=== PATIENT | male | born 1995 | race Caucasian/White ===

== ENCOUNTER 2020-06-03 12:01 | Emergency (ER) | payer OTHER, SELFPAY ==
[2020-06-03 12:22] VITALS: BP 133/76; PULSE 95; RESP 18; TEMP 37.5; O2SAT 97; BMI 26.6
--- NOTE | 2020-06-03 12:25 | ED_ITS ---
HPI - Alcohol General Chief Complaint: General Medical Stated Complaint: OD?/HYPERTENSION Time Seen by Provider: 06/03/20 12:18 Source: patient and EMS Mode of arrival: EMS History of Present Illness HPI narrative: 24-year-old male with no significant past medical history brought in by ambulance s/p found on front porch unresponsive ?Overdose. Reportedly per EMS heroin was found near patient. Patient only admits to using marijuana. De nies EtOH/SI/HI, trauma/falls, CP/SOB, nausea/vomiting, head trauma Last drink: Just prior to admission Related Data Allergies Allergy/AdvReac Type Severity Reaction Status Date / Time No Known Allergies Allergy Unverified 12/11/19 16:16 [No Known Allergies*] Review of Systems Review of Systems: Constitutional: No Fever, No Chills Eyes: No Eye Pain Cardiovascular: No Chest Pain, No SOB, No Palpitations Respiratory: No Cough, No Dyspnea Gastrointestinal: No Nausea, No Vomiting, No Abdominal pain Musculoskeletal: No joint pain, No Joint Swelling Skin: No Skin Lesions, No rash Neuro: No Weakness, No Headache Psych: No Anxiety/Panic, No Depression, No SI/HI Yes all other systems are reviewed and are negative Neurologic: Denies Abnormal speech present [facility] Past Medical History Attestation statement: The following information was validated with the patient. Medical History (Updated 06/03/20 @ 13:59 by OSEAS Mercado) No significant past medical history Social History Social History Alcohol intake: current Smoking Status: Current every day smoker Smoked in Last 30 Days: Yes Substance Use Type: Marijuana and Prescription Drugs Advance Directives: No Advance Directives Information Provided: No Physical Exam Vital Signs: Vital Signs: Last Vital Signs Temp 98.2 F 06/03/20 13:11 Pulse 87 06/03/20 13:31 Resp 16 06/03/20 13:31 BP 117/76 06/03/20 13:31 Pulse Ox 98 06/03/20 13:31 Body Mass Index 26.6 Const: Other: Appears under the influence General: cooperative, healthy appearing, alert and awake Limitations: no limitations HENMT: Head: Yes normal to inspection and Yes atraumatic Ears: hearing grossly normal bilaterally General nose exam: Normal external nose present Face and sinus: Yes normal facial exam Eyes: General: appearance normal, both eyes and all related structures Pupils: Equal, round and reactive pupils present EOM: EOMs intact bilaterally Neck: Neck: Yes normal visual inspection and Yes no meningeal signs Resp: Effort & Inspection: normal respiratory effort Cardio: Rate: regular rate GI: Inspection: Yes normal to inspection Palpation (GI): Soft to palpation, nontender, no guarding and not rigid Skin: Rashes: no rashes Wounds: no wounds Neuro: General: tone normal, moves all extremities and no meningeal signs Cranial nerves: Yes Equal, round and reactive pupils present Speech: No Abnormal speech present Gait exam (Neuro): Normal gait present Extrem: General: Yes normal to inspection Course Reevaluation(s) Reevaluation #1: Patient is awake and alert, ambulating around the ED with steady gait, used the bathroom, tolerated p.o. Has family at bedside who will be staying with patient all day, and giving him safe ride home. Plan to DC Time: 13:59 MDM - Alcohol MDM Narrative Medical decision making narrative: 24-year-old male with no significant past medical history brought in by ambulance s/p found on his front porch unresponsive ?Overdose. On exam VSS, NAD, appears under the influence, awake, alert, atraumatic, NAD, nontoxic appearing. No medications given by EMS. Will observe and reassess. If patient remains awake/alert plan for discharge Discharge Plan Discharge Clinical Impression: Overdose Qualifiers: Encounter type: initial encounter Injury intent: accidental or unintentional Qualified Code(s): T50.901A - Poisoning by unspecified drugs, medicaments and biological substances, accidental (unintentional), initial encounter Patient Disposition: Home, Self-Care Instructions: Polysubstance Abuse (ED) Additional Instructions: Do not take drugs or drink alcohol it can kill you Follow-up with your doctor If you have thoughts of hurting herself or hurting others return to the ED Referrals: Physician,None [Primary Care Provider] - 2 days
--- NOTE | 2020-06-03 12:28 | PC.NURSE ---
Security at bedside. Pt patted down. No paraphernalia found on pt.
--- NOTE | 2020-06-03 12:55 | PC.NURSE ---
Pt requested and given snack and gingerale, tolerating po well.
[2020-06-03 13:11] VITALS: BP 122/71; PULSE 84; RESP 16; TEMP 36.8; O2SAT 96
[2020-06-03 13:12] VITALS: PULSE 78; RESP 14; O2SAT 95
--- NOTE | 2020-06-03 13:20 | PC.NURSE ---
Pt nodding off during assessments. Provider made aware. Vital signs and respirations within normal limits and documented. Skin color within normal limits for pt. Pt arousable to verbal stimuli.
[2020-06-03 13:31] VITALS: BP 117/76; PULSE 87; RESP 16; O2SAT 98
--- NOTE | 2020-06-03 13:56 | PC.NURSE ---
Pt up and walking around ED. Asking about discharge, provider aware, awaiting d/c paperwork.
[2020-06-03 14:10] LABS: Amphetamine Screen Urine Not Detected (Not Detect); Barbiturates, Urine Not Detected (Not Detect); Benzodiazepines Screen Urine Not Detected (Not Detect); Cannabinoid Screen Urine POSITIVE (Not Detect); Cocaine Screen Urine Not Detected (Not Detect); Opiate Screen Urine POSITIVE (Not Detect); Phencyclidine Screen Urine Not Detected (Not Detect)
== END 2020-06-03 14:03 | disposition home or self-care (01) ==
PROVIDERS: Physician Assistant; Emergency Provider Emergency Medicine Emergency Medical Services
DX: T40.1X1A Poisoning by heroin, accidental (unintentional), initial encounter (principal); R40.4 Transient alteration of awareness; Y92.038 Other place in apartment as the place of occurrence of the external cause; F12.10 Cannabis abuse, uncomplicated; F11.10 Opioid abuse, uncomplicated
CPT/HCPCS: 80307; 99284

== ENCOUNTER 2021-04-05 12:30 | Outpatient (REF) | payer OTHER, SELFPAY ==
[2021-04-05 15:13] LABS: Binax Internal Control QC Valid; Binax Now Covid-19 Ag Negative (Negative)
== END 2021-04-05 12:31 | disposition home or self-care (01) ==
LOC: HO.LAB 12:30
PROVIDERS: Visit Provider Internal Medicine
DX: Z20.822 Contact with and (suspected) exposure to COVID-19 (principal)
CPT/HCPCS: C9803

== ENCOUNTER → 2021-05-05 09:11 | Outpatient (BNVA) | payer OTHER, SELFPAY | PROVIDERS: Visit Provider Nurse Practitioner Psychiatric/Mental Health | DX: Z51.81 Encounter for therapeutic drug level monitoring (principal); F11.20 Opioid dependence, uncomplicated; F14.20 Cocaine dependence, uncomplicated | CPT/HCPCS: 99202 ==

== ENCOUNTER → 2022-06-05 12:55 | Outpatient (BNVA) | payer OTHER, SELFPAY | PROVIDERS: Visit Provider Nurse Practitioner Psychiatric/Mental Health | DX: F11.20 Opioid dependence, uncomplicated (principal); F14.20 Cocaine dependence, uncomplicated | CPT/HCPCS: 99212 ==

== ENCOUNTER → 2022-06-20 15:56 | Outpatient (BNVA) | payer OTHER, SELFPAY | PROVIDERS: PCP Physician Assistant | DX: Z51.81 Encounter for therapeutic drug level monitoring (principal); F11.20 Opioid dependence, uncomplicated | CPT/HCPCS: 80305 ==

== ENCOUNTER 2022-06-27 16:21 | Outpatient (REF) | payer OTHER, SELFPAY | END 2022-06-27 16:22 | disposition home or self-care (01) | LOC: HO.LAB 16:21 | PROVIDERS: PCP Physician Assistant; Visit Provider Nurse Practitioner Psychiatric/Mental Health | DX: F11.20 Opioid dependence, uncomplicated (principal); Z51.81 Encounter for therapeutic drug level monitoring; Z79.899 Other long term (current) drug therapy | CPT/HCPCS: 99212 ==

== ENCOUNTER 2022-06-30 18:06 | Emergency (ER) | payer OTHER, SELFPAY ==
[2022-06-30 18:12] VITALS: BP 120/77; BP 140/78; PULSE 110; PULSE 121; RESP 20; TEMP 36.7; O2SAT 95; O2SAT 97; BMI 27.8
--- NOTE | 2022-06-30 18:16 | ED_ITS ---
HPI - Overdose General Chief Complaint: Overdose Stated Complaint: heroin overdose Time Seen by Provider: 06/30/22 18:12 Source: patient and EMS Mode of arrival: EMS Limitations: no limitations History of Present Illness HPI Narrative: Patient comes to the emergency room via EMS after an accidental overdose. Patient states that he usually does not use heroin, this time he used cocaine and heroin. Patient states it was an unintentional overdose, denies homicidal or suicidal ideation. According to EMS, patient was given intranasal Narcan and ventilated, patient response. Related Data Previous Rx's Medication Instructions Recorded hydroxyzine HCl 25 mg tablet 25 mg PO TID PRN anxiety #14 tabs 05/05/21 naloxone 4 mg/actuation nasal 4 mg intranasal Q2M PRN opioid 05/05/21 spray (Narcan) overdose #2 ea buprenorphine 8 mg-naloxone 2 mg 1 film sublingual BID #15 ea 06/27/22 sublingual film Allergies Allergy/AdvReac Type Severity Reaction Status Date / Time No Known Allergies Allergy Verified 06/20/22 16:02 [No Known Allergies*] Review of Systems Review of Systems: Constitutional : No Weight loss, No Fever, No Chills, No Night Sweats, No Fatigue, No Malaise ENT/Mouth : No Hearing loss, No Ear Pain, No Nasal Congestion, No Sinus Pain, No Hoarseness, No sore throat, No Rhinorrhea, No Swallowing Difficulty Eyes: No Eye Pain, No Swelling, No Redness, No Foreign Body, No Discharge, No Vision Changes Cardiovascular : No Chest Pain, No SOB, No Dyspnea on Exertion, No Orthopnea, No Edema, No Palpitations Respiratory : No Cough, No Sputum, No Wheezing, No Smoke Exposure, No Dyspnea Gastrointestinal : No Nausea, No Vomiting, No Diarrhea, No Constipation, No abdominal Pain, No Hematochezia, No Melena Genitourinary : no irregular bleeding, No Dysuria, No Urinary Frequency, No Hematuria, No Urinary Incontinence, No Urgency, No Flank Pain, No Urinary Flow Changes, No Hesitancy Musculoskeletal : No joint pain, No Myalgias, No Joint Swelling Skin : No Skin Lesions, No rash Neuro : No Weakness, No Numbness, No Paresthesias, No Loss of Consciousness, No Dizziness, No Headache Psych : Denies anxiety or depression, admits to drug abuse, refuses detox Heme/Lymph: No Bruising, No Bleeding,No Lymphadenopathy Endocrine : No Polyuria, No Polydipsia, No Temperature Intolerance [facility] Past Medical History Medical History (Updated 06/30/22 @ 18:20 by Payal Weathers MD) Cocaine use disorder, moderate, dependence Opioid use disorder, severe, dependence Social History Social History Alcohol intake: current Substance Use Type: Marijuana and Prescription Drugs Advance Directives: No Advance Directives Information Provided: No Physical Exam Vital Signs: Vital Signs: Last Vital Signs Temp 98.0 F 06/30/22 18:12 Pulse 121 H 06/30/22 18:12 Resp 20 06/30/22 18:12 BP 120/77 06/30/22 18:12 Pulse Ox 95 06/30/22 18:12 O2 Del Method Room Air 06/30/22 18:12 BMI result Body Mass Index 27.8 Const: Other: Appearance: Alert. Oriented X3. No acute distress. Eyes: Pupils equal, round and reactive to light. ENT: Pharynx normal. Neck: Normal inspection. Neck supple. No lymph nodes noted. No crepitus CVS: Normal heart rate and rhythm. Pulses normal. Normal S1 and S2 Respiratory: No respiratory distress. Breath sounds normal. No Wheezing. No rales Abdomen: Soft and nontender. No rigidity. No distention. Skin: Skin warm and dry. Normal skin color. Normal skin turgor. Extremities: No lower extremity edema. No Lacerations. No Rash Neuro: Oriented X 3. No motor deficit. No sensory deficit. Moving all extremities. No slurred speech. CN 2 through 12 grossly intact Psych: calm, cooperative, normal affect Medical Decision Making Medical Decision Making MDM Narrative: -patient a bit anxious, tachycardic, patient refusing care. Patient states that it was accidental. -patient was given 1 dose of intranasal Narcan with good response. Patient is willing to stay for observation for couple of hours. -on arrival patient is alert and oriented x4, no acute distress, oxygen saturation 95% on room air. -patient will be provided with home Narcan. -patient declined to be seen by the care team for SUDE eval -physician observe agents status at 18:20 -19:10 patient requesting to be discharged, patient has remained alert, oriented x4, oxygen saturation above 95%, ambulatory, denies SI or HI Differential Diagnosis Differential Diagnoses: The differential diagnosis associated with the presentation includes Discharge Plan Discharge Clinical Impression: Drug overdose Patient Disposition: Home, Self-Care Additional Instructions: Please follow-up with your primary care physician tomorrow. If you have any worsening or new symptoms, please return to the emergency room or call 911 Prescriptions: No Action hydroxyzine HCl 25 mg tablet 25 mg PO TID PRN (Reason: anxiety) Qty: 14 0RF naloxone [Narcan] 4 mg/actuation spray,non-aerosol 4 mg intranasal Q2M PRN (Reason: opioid overdose) Qty: 2 0RF Rx Instructions: spray 1 dose into ONE nostril; alternate nostrils w each dose until help arrives buprenorphine-naloxone 8-2 mg film 1 film sublingual BID Qty: 15 0RF
[2022-06-30] MEDS: Naloxone HCl Nasal TAKE HOME 4 MG SPRAY NOSTRILALT (19:17)
== END 2022-06-30 19:25 | disposition home or self-care (01) ==
PROVIDERS: Emergency Provider Emergency Medicine
DX: T40.1X1A Poisoning by heroin, accidental (unintentional), initial encounter (principal); Y92.9 Unspecified place or not applicable; Z79.899 Other long term (current) drug therapy
CPT/HCPCS: 99282; 99283

== ENCOUNTER 2022-07-05 19:53 | Emergency (ER) | payer OTHER, SELFPAY ==
[2022-07-05 20:20] VITALS: BP 107/62; PULSE 89; RESP 18; TEMP 36; O2SAT 95; BMI 27.8
--- NOTE | 2022-07-05 20:20 | ED_ITS ---
HPI - Headache General Chief Complaint: Headache <Morena Urias NP - Last Filed: 07/05/22 20:44> Stated Complaint: headache vomiting <Morena Urias NP - Last Filed: 07/05/22 20:44> Time Seen by Provider: 07/05/22 21:52 <Morena Urias NP - Last Filed: 07/05/22 20:44> Source: patient <Cyrus Urban MD - Last Filed: 07/05/22 23:34> Mode of arrival: ambulatory <Cyrus Urban MD - Last Filed: 07/05/22 23:34> Limitations: no limitations <Cyrus Urban MD - Last Filed: 07/05/22 23:34> History of Present Illness HPI Narrative: Patient with history of migraine headaches been having headaches similar to that in the past since the morning. Pain is throbbing pain retro bulbar area with photosensitivity and nausea vomiting no recent trauma no fever or chills <Cyrus Urban MD - Last Filed: 07/05/22 23:34> Related Data Home Medications: Previous Rx's Medication Instructions Recorded hydroxyzine HCl 25 mg tablet 25 mg PO TID PRN anxiety #14 tabs 05/05/21 naloxone 4 mg/actuation nasal 4 mg intranasal Q2M PRN opioid 05/05/21 spray (Narcan) overdose #2 ea buprenorphine 8 mg-naloxone 2 mg 1 film sublingual BID #15 ea 06/27/22 sublingual film [id number] 1 cap PO Q6H PRN headache #20 caps 07/05/22 50 mg-300 mg-40 mg capsule (Fioricet) ondansetron 4 mg disintegrating 4 mg PO Q6-8H PRN nausea and 07/05/22 tablet vomiting #10 tabs sumatriptan succinate 50 mg tablet 50 mg PO Q2H PRN migraine headache 07/05/22 (Imitrex) #10 tabs <Morena Urias NP - Last Filed: 07/05/22 20:44> Allergies/Adverse Reactions: Allergies Allergy/AdvReac Type Severity Reaction Status Date / Time No Known Allergies Allergy Verified 07/05/22 20:20 [No Known Allergies*] <Morena Urias NP - Last Filed: 07/05/22 20:44> Review of Systems Review of Systems: Yes all other systems are reviewed and are negative <Cyrus Urban MD - Last Filed: 07/05/22 23:34> [facility] Past Medical History Medical History: Medical History Cocaine use disorder, moderate, dependence Opioid use disorder, severe, dependence <Morena Urias NP - Last Filed: 07/05/22 20:44> Social History Social History: Social History Alcohol intake: current Substance Use Type: Marijuana and Prescription Drugs Advance Directives: No Advance Directives Information Provided: No <Morena Urias NP - Last Filed: 07/05/22 20:44> Physical Exam Vital Signs: Vital Signs: Last Vital Signs Temp 96.8 F 07/05/22 20:20 Pulse 89 07/05/22 20:20 Resp 18 07/05/22 20:20 BP 107/62 07/05/22 20:20 Pulse Ox 95 07/05/22 20:20 O2 Del Method Room Air 07/05/22 20:20 BMI result Body Mass Index 27.8 <Morena Urias NP - Last Filed: 07/05/22 20:44> Vital Signs: Last Vital Signs Temp 96.8 F 07/05/22 20:20 Pulse 89 07/05/22 20:20 Resp 18 07/05/22 20:20 BP 107/62 07/05/22 20:20 Pulse Ox 95 07/05/22 20:20 O2 Del Method Room Air 07/05/22 20:20 BMI result Body Mass Index 27.8 <Cyrus Urban MD - Last Filed: 07/05/22 23:34> Appearance: Alert. Oriented X3. No acute distress. Eyes: PERRLA, No Nystagmus ENT: Pharynx normal. Oral Mucosa moist no temporal artery tenderness Neck: Normal inspection. Neck supple. CVS: Normal heart rate and rhythm. Pulses normal. Respiratory: No respiratory distress. Equal air entry bilateral, Abdomen: Soft and nontender. Bowel sounds are present, Skin: Skin warm and dry. Normal skin color. Normal skin turgor. Extremities: No lower extremity edema. No calf tenderness Neuro: Oriented X 3. No motor deficit. No sensory deficit.No cerebellar signs , cranial nerves II-XII intact <Cyrus Urban MD - Last Filed: 07/05/22 23:34> Course Course Course Narrative: This is a rapid medical exam. Deferred additional HPI, ROS, PE to primary provider. 26 yo male with history of anxiety, OUD in suboxone here with headache, nausea/vomiting, dizziness which began today while working. No fever, cough or cold symptoms. H/o migraines and feels similar. Normally takes excedrin but did not take any today. Will send viral testing. VSS <Morena Urias NP - Last Filed: 07/05/22 20:44> Medications Administered Discontinued Medications Generic Name Dose Route Start Last Admin Trade Name Freq PRN Reason Stop Dose Admin Acetaminophen/Butalbital/Caffeine 1 tab 07/05/22 21:53 07/05/22 22:02 Butalb/Acetamin/Caff 50/325/40 Tablet PO 07/05/22 21:54 1 tab ONCE ONE Administration Ondansetron HCl 4 mg 07/05/22 21:53 07/05/22 22:03 Ondansetron Odt 4 Mg Tab.Rolando LEGERINGU 07/05/22 21:54 4 mg ONCE ONE Administration Sumatriptan Succinate 6 mg 07/05/22 21:53 07/05/22 22:02 Sumatriptan Succinate 6 Mg/0.5 Ml Vial SUBCUT 07/05/22 21:54 6 mg ONCE ONE Administration <Morena Urias NP - Last Filed: 07/05/22 20:44> Medications Administered Discontinued Medications Generic Name Dose Route Start Last Admin Trade Name Freq PRN Reason Stop Dose Admin Acetaminophen/Butalbital/Caffeine 1 tab 07/05/22 21:53 07/05/22 22:02 Butalb/Acetamin/Caff 50/325/40 Tablet PO 07/05/22 21:54 1 tab ONCE ONE Administration Ondansetron HCl 4 mg 07/05/22 21:53 07/05/22 22:03 Ondansetron Odt 4 Mg Tab.Rapdis TRANSLINGU 07/05/22 21:54 4 mg ONCE ONE Administration Sumatriptan Succinate 6 mg 07/05/22 21:53 07/05/22 22:02 Sumatriptan Succinate 6 Mg/0.5 Ml Vial SUBCUT 07/05/22 21:54 6 mg ONCE ONE Administration <Cyrus Urban MD - Last Filed: 07/05/22 23:34> Medical Decision Making Medical Decision Making MDM Narrative: Patient with migraine headache responded to Imitrex will discharge patient home on Imitrex Fioricet is of <Cyrus Urban MD - Last Filed: 07/05/22 23:34> Lab Data Labs: Lab Results 07/05/22 Range/Units 21:05 Influenza Type A (PCR) NEGATIVE (Negative) Influenza Type B (PCR) NEGATIVE (Negative) RSV RNA Qual (PCR) NEGATIVE (Negative) SARS-CoV-2 RNA (RT-PCR) NEGATIVE (Negative) <Morena Urias NP - Last Filed: 07/05/22 20:44> Lab Results 07/05/22 Range/Units 21:05 Influenza Type A (PCR) NEGATIVE (Negative) Influenza Type B (PCR) NEGATIVE (Negative) RSV RNA Qual (PCR) NEGATIVE (Negative) SARS-CoV-2 RNA (RT-PCR) NEGATIVE (Negative) <Cyrus Urban MD - Last Filed: 07/05/22 23:34> Discharge Plan Discharge Clinical Impression: Migraine <Morena Urias NP - Last Filed: 07/05/22 20:44> Patient Disposition: Home, Self-Care <Morena Urias NP - Last Filed: 07/05/22 20:44> Instructions: Migraine Headache (ED) <Morena Urias NP - Last Filed: 07/05/22 20:44> Additional Instructions: Rest at home Imitrex 1 tablet at onset of headache may repeat another tablet in 2 hours maximum 2 tablets In 24 hours Fioricet 1 tablet every 6 hours as needed Follow with PCP as needed <Morena Urias NP - Last Filed: 07/05/22 20:44> Prescriptions: New sumatriptan succinate [Imitrex] 50 mg tablet 50 mg PO Q2H PRN (Reason: migraine headache) Qty: 10 0RF Rx Instructions: do not exceed 2 doses per 24 hrs ondansetron 4 mg tablet,disintegrating 4 mg PO Q6-8H PRN (Reason: nausea and vomiting) Qty: 10 0RF [id number]-[id number] [Fioricet] 50-300-40 mg capsule 1 cap PO Q6H PRN (Reason: headache) Qty: 20 0RF No Action hydroxyzine HCl 25 mg tablet 25 mg PO TID PRN (Reason: anxiety) Qty: 14 0RF naloxone [Narcan] 4 mg/actuation spray,non-aerosol 4 mg intranasal Q2M PRN (Reason: opioid overdose) Qty: 2 0RF Rx Instructions: spray 1 dose into ONE nostril; alternate nostrils w each dose until help arrives buprenorphine-naloxone 8-2 mg film 1 film sublingual BID Qty: 15 0RF <Morena Urias SALES OFFICE MANAGER - Last Filed: 07/05/22 20:44>
[2022-07-05 21:49] LABS: Influenza A PCR NEGATIVE (Negative); Influenza B PCR NEGATIVE (Negative); Resp Syncy Virus RNA Qual PCR NEGATIVE (Negative); SARS COV2 PCR INHOUSE NEGATIVE (Negative)
[2022-07-05] MEDS: SUMAtriptan succinate 6 MG/0.5 ML VIAL SUBCUT (22:02)
[2022-07-05] MEDS: Butalb/Acetamin/Caff 50/325/40 TABLET 1 TAB PO (22:02)
[2022-07-05] MEDS: Ondansetron ODT 4 MG TAB.RAPDIS TRANSLINGU (22:03)
== END 2022-07-05 23:39 | disposition home or self-care (01) ==
PROVIDERS: Nurse Practitioner Family; Emergency Provider Internal Medicine
DX: G43.909 Migraine, unspecified, not intractable, without status migrainosus (principal); R11.2 Nausea with vomiting, unspecified; R42 Dizziness and giddiness; F11.11 Opioid abuse, in remission; Z20.822 Contact with and (suspected) exposure to COVID-19
CPT/HCPCS: 0241U; 96372; 99283; 99284; J3030

== ENCOUNTER 2022-07-06 21:50 | Emergency (ER) | payer OTHER, SELFPAY ==
--- NOTE | ~2022-07-06 | XR_ITS ---
EXAMINATION: XR CHEST CLINICAL INFORMATION: Unresponsive, aspiration or trauma. COMPARISON: None available. TECHNIQUE: Frontal view of the chest was obtained. FINDINGS: No significant cardiomediastinal contour abnormality. No focal airspace opacity, pleural effusion or pneumothorax. No displaced rib fractures. XR/XR chest 1V IMPRESSION: No acute cardiopulmonary findings. No displaced rib fractures.
[2022-07-06 21:55] VITALS: BP 126/66; PULSE 100; RESP 20; TEMP 36.9; O2SAT 96; BMI 31.8
[2022-07-06 22:00] VITALS: BP 126/66; PULSE 100; RESP 22; TEMP 36.9; O2SAT 96
[2022-07-06 22:18] LABS: MANUAL DIFF FLAG NO
[2022-07-06 22:20] LABS: Basophils Absolute Auto 0.1 X10*3/uL (0.0-0.2); Basophils Percent Auto 0.6 % (0-2); Eosinophils Absolute Auto 0.1 X10*3/uL (0.0-0.4); Eosinophils Percent Auto 1.5 % (0-4); Hematocrit 40.2 % (42.0-52.0); Hemoglobin 13.7 g/dl (14.0-18.0); Imm Gran Abs Auto 0.03 X10*3/uL (0.00-0.03); Imm Gran Pct Auto 0.4 % (0.0-0.4); Lymphocytes Absolute Auto 2.5 X10*3/uL (1.2-4.9); Lymphocytes Percent Auto 30.6 % (20-40); Mean Corpuscular HGB Conc 34.1 g/dl (31.0-36.0); Mean Corpuscular Hemoglobin 28.6 pg (27.0-33.0); Mean Corpuscular Volume 83.9 fL (80.0-98.0); Mean Platelet Volume 9.8 fL (9.4-12.4); Monocytes Absolute Auto 0.5 X10*3/uL (0.1-1.2); Monocytes Percent Auto 6.6 % (2-11); Neutrophils Absolute Auto 4.9 x10*3/uL (2.0-8.3); Neutrophils Percent Auto 60.3 % (45-73); Platelet Count 287 X10*3/uL (160-400); Red Blood Count 4.79 X10*6/uL (4.60-5.80); Red Cell Distribution Width 13.1 % (11.0-16.0); White Blood Count 8.1 X10*3/uL (4.8-10.8)
--- NOTE | 2022-07-06 22:21 | ED_ITS ---
HPI - General Adult General Chief complaint: ETOH/Substance Use Stated complaint: OVERDOSE Time Seen by Provider: 07/06/22 21:58 Source: patient and EMS Mode of arrival: EMS Limitations: no limitations History of Present Illness HPI narrative: This is a 26-year-old male history of opiate use disorder, cocaine use disorder presenting with an accidental overdose, patient presented by ambulance status post receiving 8 mg of intranasal Narcan. Patient reports nausea and body aches after Narcan was administered. Patient tells me he took 1 or 2 Percocets and he says I overdosed on accident . Denies suicidal homicidal ideation. Not seeking detox at this time. No other medical complaints at this time. Denies headache, vision changes, dizziness, weakness, nausea, vomiting, chest pain, shortness of breath. Related Data Previous Rx's Medication Instructions Recorded hydroxyzine HCl 25 mg tablet 25 mg PO TID PRN anxiety #14 tabs 05/05/21 naloxone 4 mg/actuation nasal 4 mg intranasal Q2M PRN opioid 05/05/21 spray (Narcan) overdose #2 ea buprenorphine 8 mg-naloxone 2 mg 1 film sublingual BID #15 ea 06/27/22 sublingual film sswxrntjma-mwlkcwecpqhcw-bxzfrzhi 1 cap PO Q6H PRN headache #20 caps 07/05/22 50 mg-300 mg-40 mg capsule (Fioricet) ondansetron 4 mg disintegrating 4 mg PO Q6-8H PRN nausea and 07/05/22 tablet vomiting #10 tabs sumatriptan succinate 50 mg tablet 50 mg PO Q2H PRN migraine headache 07/05/22 (Imitrex) #10 tabs naloxone 4 mg/actuation nasal 4 mg intranasal Q2M PRN opioid 07/07/22 spray (Narcan) overdose #2 ea Allergies Allergy/AdvReac Type Severity Reaction Status Date / Time No Known Allergies Allergy Verified 07/05/22 20:20 [No Known Allergies*] Review of Systems Review of Systems: Constitutional : No Weight loss, No Fever, No Chills, No Fatigue, No Malaise ENT/Mouth : No sore throat, No Rhinorrhea Eyes: No Eye Pain, No Swelling, No Redness Cardiovascular : No Chest Pain, No SOB, No Dyspnea on Exertion, No Orthopnea, No Edema, No Palpitations Respiratory : No Cough, No Sputum, No Wheezing Gastrointestinal : + Nausea, No Vomiting, No Diarrhea, No Constipation, No abdominal Pain, No Hematochezia, No Melena Genitourinary : No Dysuria, No Urinary Frequency, No Hematuria, Musculoskeletal : No joint pain, + Myalgias, No Joint Swelling Skin : No Skin Lesions, No rash Neuro : No Weakness, No Numbness, No Dizziness, No Headache Psych : No Anxiety/Panic, No Depression All other systems reviewed and are negative Yes all other systems are reviewed and are negative [facility] Past Medical History Attestation statement: The following information was validated with the patient. Source: old records reviewed and nursing notes reviewed Medical History Cocaine use disorder, moderate, dependence Opioid use disorder, severe, dependence Social History Social History Alcohol intake: current Alcohol intake frequency: a few times a week Alcohol type: hard liquor Smoked in Last 30 Days: Yes Use of substances other than those prescribed or required for medical reasons: Yes Substance Use Type: Marijuana Substance Use Frequency: Daily Last Used Substance: Hours (ago) Any prior treatment program specific to substance use: No Advance Directives: No Advance Directives Information Provided: No Physical Exam ED Vital Signs: Vital Signs - 24 hr 07/06/22 21:55 07/06/22 22:00 07/06/22 23:53 Temperature 98.4 F 98.4 F 98.6 F Pulse Rate 100 100 86 Respiratory Rate 20 22 H 17 Blood Pressure 126/66 126/66 124/77 Pulse Oximetry 96 96 95 Oxygen Delivery Method Room Air Room Air Room Air BMI result Body Mass Index 31.8 vss Appearance: Alert.? Oriented X3.? No acute distress.? Head: Normocephalic, atraumatic, no step-offs or deformities Eyes: Pupils equal, round and reactive to light.? Neck: Normal inspection.? Neck supple.? CVS: Normal heart rate and rhythm.? Pulses normal.? Respiratory: No respiratory distress.? Breath sounds normal.? Abdomen: Soft and nontender.? Skin: Skin warm and dry.? Normal skin color.? Normal skin turgor.? Extremities: No lower extremity edema.? No calf ttp. 5/5 strength to bilateral upper and lower extremities Back: No midline tenderness, no C-spine tenderness, full range of motion, no CVA tenderness bilaterally Neuro: Oriented X 3.? No motor deficit.? No sensory deficit. CN 2-12 intact . Normal zqrqpv-aq-deuv, xtiq-ka-gtyq steady tandem gait. Negative Romberg and pronator drift. NIH stroke scale 0. GCS of 15. Course Reevaluation(s) Reevaluation #1: CBC with slight normocytic anemia, no evidence of bleeding, no reports of bleeding. Chemistries with no acute findings requiring intervention. Troponin negative, EKG nonischemic. Ethanol negative. Time: 23:45 Reevaluation #2: Total CPK 306, not meeting criteria for rhabdo, patient tolerating p.o. fluids. Will educate on proper hydration. Patient feeling well, 97% on room air. At this time patient will be discharged with home Narcan. Refusing detox services and SUDE, no si or hi. . Educated patient on diagnosis and treatment plan, a nswered all question, patient verbalizes understanding. At this time patient will be discharged home, advised to return with new or worsening symptoms. Educated on worrisome signs and symptoms and when to return. At this time I feel comfortable discharge home. Time: 23:46 Medical Decision Making Medical Decision Making MDM Narrative: 26-year-old male presents status post accidental overdose on opiates was given 8 mg of intranasal Narcan by EMS. Denies suicidal and homicidal ideation. Now complaining of nausea and body aches after Narcan. Physical exam. GCS 15. NIH stroke scale 0. Neurological exam nonfocal, cerebellar intact. Regular rate and rhythm. Lungs clear. Abdomen soft nontender nondistended. No evidence of trauma. Likely accidental overdose, Percocet may have been laced with fentanyl. Suspected polysubstance abuse. Unlikely metabolic derangements. I do not suspect rhabdo or ACS. No evidence of trauma head, cervical spine, chest, abdomen or pelvis, patient not complaining of any pain. No need for imaging. Plan at this time observation, basic labs were ordered by nursing. Differential Diagnosis Differential Diagnoses: The differential diagnosis associated with the presen tation includes Likely accidental overdose, Percocet may have been laced with fentanyl. Suspected polysubstance abuse. Unlikely metabolic derangements. I do not suspect rhabdo or ACS. No evidence of trauma head, cervical spine, chest, abdomen or pelvis, patient not complaining of any pain. No need for imaging. Admission/Observation Consideration of admission/observation: Escalation of care including admission/observation considered Lab Data MDM Lab Attestation statement: I reviewed the patient's lab results. 07/06/22 22:14 07/06/22 22:14 Labs: Lab Results 07/06/22 07/06/22 07/06/22 Range/Units 22:14 22:14 22:14 WBC 8.1 (4.8-10.8) X10*3/uL RBC 4.79 (4.60-5.80) X10*6/uL Hgb 13.7 L (14.0-18.0) g/dl Hct 40.2 L (42.0-52.0) % MCV 83.9 (80.0-98.0) fL MCH 28.6 (27.0-33.0) pg MCHC 34.1 (31.0-36.0) g/dl RDW 13.1 (11.0-16.0) % Plt Count 287 (160-400) X10*3/uL MPV 9.8 (9.4-12.4) fL Immature Gran % (Auto) 0.4 (0.0-0.4) % Neut % (Auto) 60.3 (45-73) % Lymph % (Auto) 30.6 (20-40) % Stokes % (Auto) 6.6 (2-11) % Eos % (Auto) 1.5 (0-4) % Baso % (Auto) 0.6 (0-2) % Lymph # (Auto) 2.5 (1.2-4.9) X10*3/uL Stokes # (Auto) 0.5 (0.1-1.2) X10*3/uL Eos # (Auto) 0.1 (0.0-0.4) X10*3/uL Baso # (Auto) 0.1 (0.0-0.2) X10*3/uL Abs Immat Gran (auto) 0.03 (0.00-0.03) X10*3/uL Absolute Neuts (auto) 4.9 (2.0-8.3) x10*3/uL Absolute Nucleated RBC 0.000 (0.0-0.012) X10*3/uL Nucleated RBC % (auto) 0.0 (0.0-0.2) /100WBC Sodium 141 (135-145) mmol/L Potassium 3.4 (3.3-5.1) mmol/L Chloride 105 (96-108) mmol/L Carbon Dioxide 27 (22-29) mmol/L Anion Gap 12 (12-20) BUN 8 L (9-16) mg/dL Creatinine 1.00 (0.5-1.4) mg/dL Estim Creat Clear Calc 134.6 Estimated GFR > 60 Random Glucose 94 (60-115) mg/dL Calcium 9.0 (8.4-10.2) mg/dL Total Bilirubin 0.3 (0.0-1.0) mg/dL AST 25 (5-37) U/L ALT 27 (0-40) U/L Alkaline Phosphatase 107 (39-117) U/L Total Creatine Kinase 306 H (38-174) U/L Troponin I High Sens < 2.7 (<3.5-35.0) ng/L Total Protein 7.0 (6.5-8.0) g/dL Albumin 4.2 (3.5-5.0) g/dL Ethyl Alcohol < 10 mg/dL Independent Interpretation I performed an independent interpretation of an: EKG (Ventricular rate of 91, SC normal, QRS normal, QT/QTC normal. No ST elevations or inversions concerning for ischemia.) and Plain X-Ray (XR/XR chest 1V IMPRESSION: No acute cardiopulmonary findings. No displaced rib fractures.) Radiology Impression Discussion of test interpretation with radiology: I have reviewed the radiologist's reading. Core Measures AMI core measures followed: Yes Measure exclusions: not indicated Critical Care Time Critical Care Time Critical Care Time: No Discharge Plan Discharge Clinical Impression: Opiate overdose Patient Disposition: Home, Self-Care Instructions: Prescription Opioid Overdose (ED) Additional Instructions: Take your medications as prescribed. If you were prescribed antibiotics today, it is important that you take your medication to their entirety, do not skip any doses, do not finish them early. Follow-up with your primary care provider this week. Return to the emergency department with new or worsening symptoms. Such as fevers, chills, chest pain, shortness of breath, nausea, vomiting, dizziness, headache, vision changes, lethargy In case of emergency call 911 Please drink plenty of fluids. Please keep Narcan on you can save lives. XR/XR chest 1V IMPRESSION: No acute cardiopulmonary findings. No displaced rib fractures. Prescriptions: New naloxone [Narcan] 4 mg/actuation spray,non-aerosol 4 mg intranasal Q2M PRN (Reason: opioid overdose) Qty: 2 0RF Rx Instructions: spray 1 dose into ONE nostril; alternate nostrils w each dose until help arrives No Action sumatriptan succinate [Imitrex] 50 mg tablet 50 mg PO Q2H PRN (Reason: migraine headache) Qty: 10 0RF Rx Instructions: do not exceed 2 doses per 24 hrs ondansetron 4 mg tablet,disintegrating 4 mg PO Q6-8H PRN (Reason: nausea and vomiting) Qty: 10 0RF ytorcuqaqc-wmpbrgadyzkpp-sdop [Fioricet] 50-300-40 mg capsule 1 cap PO Q6H PRN (Reason: headache) Qty: 20 0RF hydroxyzine HCl 25 mg tablet 25 mg PO TID PRN (Reason: anxiety) Qty: 14 0RF naloxone [Narcan] 4 mg/actuation spray,non-aerosol 4 mg intranasal Q2M PRN (Reason: opioid overdose) Qty: 2 0RF Rx Instructions: spray 1 dose into ONE nostril; alternate nostrils w each dose until help arrives buprenorphine-naloxone 8-2 mg film 1 film sublingual BID Qty: 15 0RF Referrals: Brandon Dias MD [Primary Care Provider] - 2 days Stand Alone Forms: Work/School Release
[2022-07-06 22:40] LABS: Alanine Aminotransferase 27 U/L (0-40); Albumin Level 4.2 g/dL (3.5-5.0); Alkaline Phosphatase 107 U/L (39-117); Anion Gap 12 (12-20); Aspartate Amino Transferase 25 U/L (5-37); Bilirubin Total 0.3 mg/dL (0.0-1.0); Blood Urea Nitrogen 8 mg/dL (9-16); Carbon Dioxide 27 mmol/L (22-29); Chloride 105 mmol/L (96-108); Creatinine Clr Calc Pharmacy 134.6; Estimated Glomerular Filt Rate > 60; Ethanol < 10 mg/dL; Glucose Random 94 mg/dL (60-115); Potassium 3.4 mmol/L (3.3-5.1); Sodium 141 mmol/L (135-145)
[2022-07-06 22:46] LABS: Troponin-I High Sensitivity < 2.7 ng/L (<3.5-35.0)
--- NOTE | 2022-07-06 23:43 | ECG_ITS ---
Test Reason : OVERDOSE Blood Pressure : / mmHG Vent. Rate : 091 BPM Atrial Rate : 091 BPM P-R Int : 180 ms QRS Dur : 120 ms QT Int : 378 ms P-R-T Axes : 061 086 060 degrees QTc Int : 464 ms Normal sinus rhythm Cannot rule out Inferior infarct , age undetermined Abnormal ECG No previous ECGs available Referred By: Porfirio Salvador Electronically Signed By:SHIRLEY CASTANEDA MD
[2022-07-06 23:53] VITALS: BP 124/77; PULSE 86; RESP 17; TEMP 37; O2SAT 95
[2022-07-07] MEDS: Naloxone HCl Nasal TAKE HOME 4 MG SPRAY NOSTRILALT (01:47)
== END 2022-07-07 01:54 | disposition home or self-care (01) ==
PROVIDERS: Physician Assistant; Emergency Provider Emergency Medicine; PCP Internal Medicine
DX: T40.2X1A Poisoning by other opioids, accidental (unintentional), initial encounter (principal); Y92.9 Unspecified place or not applicable; Z79.899 Other long term (current) drug therapy; Z71.51 Drug abuse counseling and surveillance of drug abuser
CPT/HCPCS: 36415; 71045; 80053; 82077; 82550; 84484; 85025; 93005; 99284; 99285

== ENCOUNTER → 2022-07-19 13:55 | Outpatient (BNVA) | payer OTHER, SELFPAY | PROVIDERS: PCP Internal Medicine; Visit Provider Nurse Practitioner Psychiatric/Mental Health | DX: Z51.81 Encounter for therapeutic drug level monitoring (principal); F11.20 Opioid dependence, uncomplicated; F14.20 Cocaine dependence, uncomplicated | CPT/HCPCS: 80305; 99212 ==

== ENCOUNTER → 2022-07-26 15:30 | Outpatient (BNVA) | payer OTHER, SELFPAY | PROVIDERS: PCP Internal Medicine; Visit Provider Nurse Practitioner Psychiatric/Mental Health | DX: Z51.81 Encounter for therapeutic drug level monitoring (principal); F11.20 Opioid dependence, uncomplicated; F14.20 Cocaine dependence, uncomplicated | CPT/HCPCS: 99212 ==

== ENCOUNTER → 2022-08-02 13:30 | Outpatient (BNVA) | payer OTHER, SELFPAY | PROVIDERS: PCP Internal Medicine; Visit Provider Nurse Practitioner Psychiatric/Mental Health | DX: Z51.81 Encounter for therapeutic drug level monitoring (principal); F11.20 Opioid dependence, uncomplicated; F14.20 Cocaine dependence, uncomplicated | CPT/HCPCS: 80305; 99212 ==

== ENCOUNTER 2022-08-09 13:42 | Outpatient (REF) | payer OTHER, SELFPAY ==
[2022-08-20 09:05] LABS: Hydrocodone, Ur NEGATIVE
[2022-08-20 09:06] LABS: Morphine, Ur >10000 (H); Norhydrocodone, Ur NEGATIVE
[2022-08-20 09:07] LABS: Noroxycodone, Ur NEGATIVE; Oxycodone, Ur NEGATIVE; Oxymorphone, Ur NEGATIVE
[2022-08-20 09:11] LABS: Oxycodone GC/MS Note SEE COMMENTS
[2022-08-20 09:12] LABS: Opiates GC/MS Note SEE COMMENTS
== END 2022-08-09 13:43 | disposition home or self-care (01) ==
LOC: HO.LAB 13:42
PROVIDERS: PCP Internal Medicine; Visit Provider Nurse Practitioner Psychiatric/Mental Health
DX: F11.20 Opioid dependence, uncomplicated (principal); Z51.81 Encounter for therapeutic drug level monitoring; Z79.899 Other long term (current) drug therapy
CPT/HCPCS: 80305; 80348; 80362; 80364; 80365; 99212

== ENCOUNTER → 2022-08-16 15:05 | Outpatient (BNVA) | payer OTHER, SELFPAY | PROVIDERS: PCP Internal Medicine; Visit Provider Nurse Practitioner Psychiatric/Mental Health | DX: Z51.81 Encounter for therapeutic drug level monitoring (principal); F11.20 Opioid dependence, uncomplicated; F14.20 Cocaine dependence, uncomplicated | CPT/HCPCS: 99212 ==

== ENCOUNTER → 2022-08-23 16:04 | Outpatient (BNVA) | payer OTHER, SELFPAY | PROVIDERS: PCP Internal Medicine; Visit Provider Nurse Practitioner Psychiatric/Mental Health | DX: Z51.81 Encounter for therapeutic drug level monitoring (principal); F11.20 Opioid dependence, uncomplicated ==

== ENCOUNTER 2023-02-14 09:23 | Outpatient (AMB) | payer OTHER, SELFPAY ==
--- NOTE | 2023-02-14 09:27 | A.OFFVIS_ITS ---
Intake Vital Signs 02/14/23 09:54 BP 114/80 Blood Pressure Location Lt brachial Position Sitting Pulse 100 Pulse Source Pulse Oximeter Pulse Oximetry (%) 96 Oxygen Delivery Method Room Air Intake Visit Reasons: mat visit Allergies No Known Allergies [No Known Allergies*] Allergy (Verified 08/09/22 15:17) MAT Intake Nursing Intake Reason for visit: re-establish MAT Has been to [facility] in the past, received suboxone previously Are you currently using?: Yes What are you taking?: Heroin, cocaine THC, PCP When was your last use?: 02/14/23 02:00 What is your current relationship status?: girlfriend Date of last visit: 08/22/22 Substance Abuse History Substance Abuse History (includes route, frequency and quantity): Heroin, Fentanyl, Buprenorphine/naloxone, Oxycodone product, Cocaine, Benzodiazepines, PCP, Alcohol and Marijuana Social History Children: 1 daughter, 1 son Do you have a support system?: girlfriend, mother, brother Current mode of transportation?: personal transportation Where are you currently residing?: [facility] IV Drug Use Have you ever overdosed?: Yes (ED/EMS Hx 06/30/22, 07/05/22) Was Naloxone administered?: Yes Recovery History Have you had any periods of recovery?: Yes What is your longest time in recovery?: Recently 7 months- When was the last time you were in recovery?: This year Have you had a Recovery Support Medicaid Plan Compliance Director?: Yes (Has asset recovery specialist that has been contacted recently) Behavioral Health History History of self harming thoughts?: No History of homicidal or suicidal intentions?: No Medical Conditions Do you have any chronic pain conditions?: Migraine Headaches Legal History History of incarceration: Yes HPI mat visit HPI Details Patient presents to the clinic to re-establish care, has not been seen in this office since the end of July 2022. Reports he has been down in [place] for the last 6-7 months, and is unwilling to elaborate further. He reports he tapered himself off of herion on his own and was sober for the time he was in [place]. Recently moved back into the area and started using again. Would like to re-start suboxone as he has found it helpful in the past. [facility] Medical History Anxiety and depression Cocaine use disorder, moderate, dependence Opioid use disorder, severe, dependence Surgical History No pertinent past surgical history Family History Mother Diabetes Father Stroke Other Substance use disorder Social History Housing: Apartment Alcohol intake: current Alcohol intake frequency: holidays/special occasions only Alcohol type: hard liquor Patient Tobacco Use Status: Current everyday Tobacco user Tobacco use type: Cigarette Cigarettes Per Day: 2 e-Cigarette/Vaping Use: Currently Using Second Hand Smoke Exposure: Yes Substance Use Type: Marijuana service: No Current occupational status: employed Cognitive needs: No Hearing needs: No Vision needs: No Review of Systems Const Reports as per HPI and Reports no additional complaints Physical Exam Vital Signs: Last Vital Signs Pulse 100 02/14/23 09:54 BP 114/80 02/14/23 09:54 Pulse Ox 96 02/14/23 09:54 Oxygen Delivery Method Room Air 02/14/23 09:54 Const General: no acute distress Nutritional Appearance: average body habitus Resp Effort & Inspection: normal respiratory effort Skin General skin exam: no rashes or lesions noted Psych Appearance: grossly normal Mental Status: mental status grossly normal Speech and movement: Normal speech and movement present Results Reviewed Results Reviewed: Laboratory Last Values POC Urine Buprenorphine Negative 02/14/23 09:27 POC Urine Morphine Positive 02/14/23 09:27 POC Urine Oxycodone Negative 02/14/23 09:27 POC Urine Methadone Negative 02/14/23 09:27 POC Urine Propoxyphene Negative 02/14/23 09:27 POC Urine Barbiturates Negative 02/14/23 09:27 POC U Tricyclic Antidpr Negative 02/14/23 09:27 POC Urine PCP Positive 02/14/23 09:27 POC Ur Amphetamines Negative 02/14/23 09:27 POC Ur Methamphetamine Negative 02/14/23 09:27 POC Urine MDMA Negative 02/14/23 09:27 POC Ur Benzodiazepine Negative 02/14/23 09:27 POC Urine Cocaine Positive 02/14/23 09:27 POC Ur Marijuana (THC) Positive 02/14/23 09:27 Assessment & Plan Assessment & Plan (1) Opioid use disorder, severe, dependence: Comment: Continued illicit opioid use. Reports taking Suboxone sporadically. Discussed need to take daily. Harm reduction discussion, patient encouraged to take Suboxone prior to using opioids. Code(s): F11.20 - Opioid dependence, uncomplicated Plan: Induction method discussed with patient. He says he has both narcan and fentanyl testing strips at home. Declining both at this time. Recovery supports reviewed with pt, states he has a asset recovery specialist and does not need a referral at this time. Plan for patient to follow up with the office in 5 days on Sunday. Reviewed with pt the office will be closed for Thanksgiving. (2) Cocaine use disorder, moderate, dependence: Comment: Harm reduction discussed. Code(s): F14.20 - Cocaine dependence, uncomplicated Orders: Orders AMB 14 Panel Urine Drug Screen 02/14/23 Z51.81 - Encounter for therapeutic drug level monitoring Medications: New buprenorphine-naloxone 8-2 mg (Suboxone) To be started after induction with the 4mg films. 1 film buccal DAILY 7 ea 0RF buprenorphine-naloxone 4-1 mg (Suboxone) place 1 strip/tab under (each) side of tongue 1 film buccal BID 6 ea 0RF Coding Diagnoses Opioid use disorder, severe, dependence F11.20 Cocaine use disorder, moderate, dependence F14.20
[2023-02-14 09:54] VITALS: BP 114/80; PULSE 100; O2SAT 96
== END 2023-02-14 10:16 | disposition home or self-care (01) ==
PROVIDERS: PCP Internal Medicine; Visit Provider Nurse Practitioner Family
DX: Z51.81 Encounter for therapeutic drug level monitoring (principal)

== ENCOUNTER → 2023-02-14 09:23 | Outpatient (BNVA) | payer OTHER, SELFPAY | PROVIDERS: PCP Internal Medicine; Visit Provider Nurse Practitioner Family | DX: F11.20 Opioid dependence, uncomplicated (principal); F14.20 Cocaine dependence, uncomplicated; F16.20 Hallucinogen dependence, uncomplicated; Z51.81 Encounter for therapeutic drug level monitoring; Z79.899 Other long term (current) drug therapy | CPT/HCPCS: 80305 ==

== ENCOUNTER 2023-04-10 12:58 | Outpatient (AMB) | payer OTHER, SELFPAY ==
[2023-04-10 13:13] VITALS: BP 122/70; PULSE 76; O2SAT 96
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
== END 2023-04-10 14:13 | disposition home or self-care (01) ==
PROVIDERS: PCP Internal Medicine; Visit Provider Nurse Practitioner Psychiatric/Mental Health
DX: F11.20 Opioid dependence, uncomplicated (principal)
CPT/HCPCS: 99214

== ENCOUNTER → 2023-04-10 12:58 | Outpatient (BNVA) | payer OTHER, SELFPAY | PROVIDERS: PCP Internal Medicine; Visit Provider Nurse Practitioner Psychiatric/Mental Health | DX: F11.20 Opioid dependence, uncomplicated (principal) | CPT/HCPCS: 99212 ==

== ENCOUNTER 2023-04-17 11:30 | Outpatient (AMB) | payer OTHER, SELFPAY ==
--- NOTE | 2023-04-17 11:31 | A.OFFVISCC_ITS ---
Intake Vital Signs 04/17/23 11:37 BP 110/70 Blood Pressure Location Lt radial Position Sitting Pulse 96 Pulse Source Pulse Oximeter Pulse Oximetry (%) 98 Oxygen Delivery Method Room Air Intake Visit Reasons: MAT Visit Intake Note: the patients presents for a mat visit Medical Parasitologist Required: No Allergies No Known Allergies [No Known Allergies*] Allergy (Verified 04/17/23 11:32) Do you need a note to return to daycare/school/sports/work: No HPI MAT Visit HPI Details Patient presents for follow up Tearful Feels dose is not adequate Still working to cut down use PFSH Medical History Anxiety and depression Cocaine use disorder, moderate, dependence Opioid use disorder, severe, dependence Surgical History No pertinent past surgical history Family History Mother Diabetes Father Stroke Other Substance use disorder Social History Housing: Apartment Alcohol intake: current Alcohol intake frequency: holidays/special occasions only Alcohol type: hard liquor Patient Tobacco Use Status: Current everyday Tobacco user Tobacco use type: Cigarette Cigarettes Per Day: 2 e-Cigarette/Vaping Use: Currently Using Second Hand Smoke Exposure: Yes Substance Use Type: Marijuana service: No Current occupational status: employed Cognitive needs: No Hearing needs: No Vision needs: No Review of Systems Const Reports as per HPI, Reports body aches, Reports chills, Reports difficulty sleeping, Reports malaise and Reports poor appetite Physical Exam Vital Signs: Last Vital Signs Pulse 96 04/17/23 11:37 BP 110/70 04/17/23 11:37 Pulse Ox 98 04/17/23 11:37 Oxygen Delivery Method Room Air 04/17/23 11:37 Const General: cooperative, healthy appearing and acute distress Nutritional Appearance: average body habitus Orientation/consciousness: patient oriented x3 Limitations: no limitations Neuro General: patient oriented x3 Assessment & Plan Assessment & Plan (1) Opioid use disorder, severe, dependence: Code(s): F11.20 - Opioid dependence, uncomplicated Plan: * increase dose to 12mg BID * follo wup one week * risk reduction discussion Medications: New buprenorphine-naloxone 12-3 mg (Suboxone) 1 film buccal BID 15 ea 0RF Discontinued buprenorphine-naloxone 8-2 mg (Suboxone) To be started after induction with the 4mg films. Discontinued Reason: Doctor's Order 1 film buccal DAILY 7 ea 0RF buprenorphine-naloxone 4-1 mg (Suboxone) place 1 strip/tab under (each) side of tongue Discontinued Reason: Doctor's Order 1 film buccal BID 6 ea 0RF buprenorphine-naloxone 8-2 mg Discontinued Reason: Doctor's Order 1 film sublingual BID 14 ea 0RF Coding Level of Care Code Est Pt Level 4 (08058) Diagnoses Opioid use disorder, severe, dependence F11.20
[2023-04-17 11:37] VITALS: BP 110/70; PULSE 96; O2SAT 98
== END 2023-04-17 13:24 | disposition home or self-care (01) ==
PROVIDERS: PCP Internal Medicine; Visit Provider Nurse Practitioner Psychiatric/Mental Health
DX: F11.20 Opioid dependence, uncomplicated (principal)
CPT/HCPCS: 99214

== ENCOUNTER → 2023-04-17 11:30 | Outpatient (BNVA) | payer OTHER, SELFPAY | PROVIDERS: PCP Internal Medicine; Visit Provider Nurse Practitioner Psychiatric/Mental Health | DX: F11.20 Opioid dependence, uncomplicated (principal) | CPT/HCPCS: 99212 ==

== ENCOUNTER 2023-04-23 14:06 | Outpatient (REF) | payer OTHER, SELFPAY ==
[2023-04-30 09:29] LABS: Buprenorphine NEGATIVE; Naloxone NEGATIVE; Norbuprenorphine NEGATIVE
== END 2023-04-23 14:07 | disposition home or self-care (01) ==
LOC: HO.LNP 14:06
PROVIDERS: PCP Internal Medicine; Visit Provider Nurse Practitioner Psychiatric/Mental Health
DX: F11.20 Opioid dependence, uncomplicated (principal); F14.20 Cocaine dependence, uncomplicated; F41.8 Other specified anxiety disorders; Z51.81 Encounter for therapeutic drug level monitoring; Z79.899 Other long term (current) drug therapy
CPT/HCPCS: 80305; 80348; 80362; 99212

== ENCOUNTER 2023-04-23 14:06 | Outpatient (AMB) | payer OTHER, SELFPAY ==
--- NOTE | 2023-04-23 14:12 | A.OFFVISCC_ITS ---
Intake Vital Signs 04/23/23 14:17 BP 114/78 Blood Pressure Location Lt radial Position Sitting Pulse 82 Pulse Source Pulse Oximeter Pulse Oximetry (%) 95 Oxygen Delivery Method Room Air Intake Visit Reasons: MAT Visit Intake Note: the patient presents for a mat visit Tuck Pointer Helper Required: No Allergies No Known Allergies [No Known Allergies*] Allergy (Verified 04/23/23 14:18) Medication List - Last Reconciled 04/23/23 by Judy Alicea CNP buprenorphine-naloxone 12-3 mg (Suboxone) 1 film buccal BID eleepnogpi-vtgjvjokvhjjg-jckp 50-300-40 mg (Fioricet) 1 cap PO Q6H PRN clonidine HCl 0.1 mg PO BID PRN hydroxyzine HCl 25 mg PO TID PRN naloxone 4 mg/actuation (Narcan) 4 mg intranasal Q2M PRN Do you need a note to return to daycare/school/sports/work: No HPI MAT Visit HPI Details Patient presents for ERIN treatment follow up Currently prescribed Suboxone 12mg BID Reports he was arrested last week for fighting with his ex GF BF Initially reported to RN that he lost all his suboxone last week then reports he remembered he has some at home Reports last opiate use was over a week ago Has been taking his Suboxone --reports feeling more normal Applied to jobs [facility] Medical History Anxiety and depression Cocaine use disorder, moderate, dependence Opioid use disorder, severe, dependence Surgical History No pertinent past surgical history Family History Mother Diabetes Father Stroke Other Substance use disorder Social History Housing: Apartment Alcohol intake: current Alcohol intake frequency: holidays/special occasions only Alcohol type: hard liquor Patient Tobacco Use Status: Current everyday Tobacco user Tobacco use type: Cigarette Cigarettes Per Day: 2 e-Cigarette/Vaping Use: Currently Using Second Hand Smoke Exposure: Yes Substance Use Type: Marijuana service: No Current occupational status: employed Cognitive needs: No Hearing needs: No Vision needs: No Review of Systems Const Reports as per HPI and Reports no additional complaints Physical Exam Vital Signs: Last Vital Signs Pulse 82 04/23/23 14:17 BP 114/78 04/23/23 14:17 Pulse Ox 95 04/23/23 14:17 Oxygen Delivery Method Room Air 04/23/23 14:17 Const General: cooperative, comfortable and poor hygiene Nutritional Appearance: average body habitus Orientation/consciousness: patient oriented x3 Limitations: no limitations Neuro General: patient oriented x3 Results AMB 14 Panel Urine Drug Screen Urine Marijuana (THC) Positive Last Edit by Selena Mcrae CMA on 04/23/23 14:58 Urine Cocaine Positive Last Edit by Selena Mcrae CMA on 04/23/23 14:58 Urine Morphine Negative Last Edit by Selena Mcrae CMA on 04/23/23 14:58 Urine Methamphetamine Negative Last Edit by Selena Mcrae CMA on 04/23/23 14:58 Urine Amphetamine Negative Last Edit by Selena Mcrae CMA on 04/23/23 14:5 8 Urine Benzodiazepine Negative Last Edit by Selena Mcrae CMA on 04/23/23 14:58 Urine Barbiturates Negative Last Edit by Selena Mcrae CMA on 04/23/23 14: 58 Urine Methadone Negative Last Edit by Selena Mcrae CMA on 04/23/23 14:58 Urine Buprenorphine Negative Last Edit by Selena Mcrae CMA on 04/23/23 14 :58 Urine Tricyclic Antidepressant Negative Last Edit by Selena Mcrae CMA on 04/23/23 14:58 Urine MDMA Negative Last Edit by eSlena Mcrae CMA on 04/23/23 14:58 Urine Oxycodone Positive Last Edit by Selena Mcrae CMA on 04/23/23 14:58 Urine Phencyclidine Negative Last Edit by Selena Mcrae CMA on 04/23/23 14 :58 Urine Propoxyphene Negative Last Edit by Selena Mcrae CMA on 04/23/23 14: 58 Results Reviewed Results Reviewed: Laboratory Last Values POC Urine Buprenorphine Negative 04/23/23 14:56 POC Urine Morphine Negative 04/23/23 14:56 POC Urine Oxycodone Positive 04/23/23 14:56 POC Urine Methadone Negative 04/23/23 14:56 POC Urine Propoxyphene Negative 04/23/23 14:56 POC Urine Barbiturates Negative 04/23/23 14:56 POC U Tricyclic Antidpr Negative 04/23/23 14:56 POC Urine PCP Negative 04/23/23 14:56 POC Ur Amphetamines Negative 04/23/23 14:56 POC Ur Methamphetamine Negative 04/23/23 14:56 POC Urine MDMA Negative 04/23/23 14:56 POC Ur Benzodiazepine Negative 04/23/23 14:56 POC Urine Cocaine Positive 04/23/23 14:56 POC Ur Marijuana (THC) Positive 04/23/23 14:56 Assessment & Plan Assessment & Plan (1) Opioid use disorder, severe, dependence: Code(s): F11.20 - Opioid dependence, uncomplicated Plan: * continue suboxone at current dose * concern that patient may not be taking his buprenorphine as screen was negative --sent for level * follow up one week Orders: Orders AMB 14 Panel Urine Drug Screen 04/23/23 Z51.81 - Encounter for therapeutic drug level monitoring Buprenorphine 04/23/23 F11.20 - Opioid dependence, uncomplicated Medications: Refilled buprenorphine-naloxone 12-3 mg (Suboxone) 1 film buccal BID 15 ea 0RF Coding Level of Care Code Est Pt Level 4 (88935) Diagnoses Opioid use disorder, severe, dependence F11.20
[2023-04-23 14:17] VITALS: BP 114/78; PULSE 82; O2SAT 95
== END 2023-04-23 15:54 | disposition home or self-care (01) ==
PROVIDERS: PCP Internal Medicine; Visit Provider Nurse Practitioner Psychiatric/Mental Health
DX: F11.20 Opioid dependence, uncomplicated (principal)
CPT/HCPCS: 99214

== ENCOUNTER 2023-04-30 10:53 | Outpatient (AMB) | payer OTHER, SELFPAY ==
--- NOTE | 2023-04-30 11:00 | A.OFFVISCC_ITS ---
Intake Vital Signs 04/30/23 11:03 BP 120/80 Blood Pressure Location Rt radial Position Sitting Pulse 115 H Pulse Source Pulse Oximeter Pulse Oximetry (%) 96 Oxygen Delivery Method Room Air Intake Visit Reasons: MAT Visit Allergies No Known Allergies [No Known Allergies*] Allergy (Verified 04/23/23 14:18) HPI MAT Visit HPI Details Patient presents for OUD treatment follow up Lab results reviewed with patient buprenorphine and norbup levels were negative on send out Patient intitally stating he was taking bupe daily, then stated he could not tolerate the 12mg films and was not taking them Chart review shows that throughout various treatment episodes with [facility] he has had similar lab results. This sba underwriter offered patient referral to [facility]-which he declined Offered referral for admission to [facility], patient also declined stating I'm not using like that, I don't need detox Discussed injection as an option, however this sba underwriter reminded patient that buprenorphine has to actually be taken --and may benefit from [facility] admission to start this. Patient replied that he would think about it. [facility] Medical History Anxiety and depression Cocaine use disorder, moderate, dependence Opioid use disorder, severe, dependence Surgical History No pertinent past surgical history Family History Mother Diabetes Father Stroke Other Substance use disorder Social History Housing: Apartment Alcohol intake: current Alcohol intake frequency: holidays/special occasions only Alcohol type: hard liquor Patient Tobacco Use Status: Current everyday Tobacco user Tobacco use type: Cigarette Cigarettes Per Day: 2 e-Cigarette/Vaping Use: Currently Using Second Hand Smoke Exposure: Yes Substance Use Type: Marijuana service: No Current occupational status: employed Cognitive needs: No Hearing needs: No Vision needs: No Review of Systems Const Reports as per HPI and Reports no additional complaints Physical Exam Vital Signs: Last Vital Signs Pulse 115 H 04/30/23 11:03 BP 120/80 04/30/23 11:03 Pulse Ox 96 04/30/23 11:03 Oxygen Delivery Method Room Air 04/30/23 11:03 Const General: cooperative, comfortable and poor hygiene Nutritional Appearance: average body habitus Orientation/consciousness: patient oriented x3 Limitations: no limitations Neuro General: patient oriented x3 Assessment & Plan Assessment & Plan (1) Opioid use disorder, severe, dependence: Code(s): F11.20 - Opioid dependence, uncomplicated Plan: * no follow up appt at this time * overdose prevention discussion Coding Level of Care Code Est Pt Level 4 (73593) Diagnoses Opioid use disorder, severe, dependence F11.20
[2023-04-30 11:03] VITALS: BP 120/80; PULSE 115; O2SAT 96
== END 2023-04-30 11:20 | disposition home or self-care (01) ==
PROVIDERS: PCP Internal Medicine; Visit Provider Nurse Practitioner Psychiatric/Mental Health
DX: F11.20 Opioid dependence, uncomplicated (principal)
CPT/HCPCS: 99214

== ENCOUNTER → 2023-04-30 10:53 | Outpatient (BNVA) | payer OTHER, SELFPAY | PROVIDERS: PCP Internal Medicine; Visit Provider Nurse Practitioner Psychiatric/Mental Health | DX: F11.20 Opioid dependence, uncomplicated (principal) | CPT/HCPCS: 99212 ==

== ENCOUNTER 2024-04-19 21:53 | Emergency (ER) | payer OTHER, SELFPAY ==
[2024-04-19 21:59] VITALS: BP 124/76; PULSE 94; RESP 16; TEMP 36.4; O2SAT 95; BMI 27.3
--- OUTSIDE RECORDS SUMMARY | 2024-04-20 02:12 | XMS_ITS | Clinical Summary ---
Author Organization [facility] Address [address] [place] [phone] Phone Care Team Providers Care Compensation Specialist Name Role Phone Unavailable Primary Care Provider Unavailabl e Immunizations Name Administration Dates Next Due DTP 07/23/1998, 5,05/23/1994, 994,1993 H1N1 01/18/2009 Hep B, ped/adol 01/18/1994,1993,1993 Hib (PRP-T) 10/20/1994, 5,01/18/1994, 994 IPV 05/23/1994 Influenza Split 01/03/2012,01/24/2011,01/21/2010 Influenza, injectable, trivalent 12/24/2008,08/2005 MMR 07/23/1998,07/24/1994 Meningococcal Conj (Menactra) MCV4P 07/26/2007 OPV 07/23/1998,01/18/1994,1993 Tdap 12/12/2005 Varicella 07/26/2007,08/06/1997 Family History Relation Name Status Comments Father Father: Hyperte nsion Maternal Grandfather Materna l grandfather: unknown Maternal Grandmother Materna l grandmother: Elevated cholesterol, Depression, Diabetes mellitus Mother Alive Mother: Alive a nd well Paternal Grandfather Paterna l grandfather: Hypertension Paternal Grandmother Paterna l grandmother: , Heart disease Social History Tobacco Use Types Packs/Day Years Used Date Smoking Tobacco: Some Days Comments:Current some day sm oker Sex and Gender Information Value Date Recorded Sex Assigned at Not on file Legal Sex Male 4:43 PM EDT Gender Identity Not on file Sexual Orientation Not on file Last Filed Vital Signs Vital Sign Reading Time Taken Comments Blood Pressure 106/66 04/26/2012 12:00 AM EST Pulse 60 02/09/2011 12:00 AM EST Temperature 36.4 ??C (97.6 ??F) 08/20/2009 12:00 AM E DT Respiratory Rate - - Oxygen Saturation - - Inhaled Oxygen Concentration - - Weight 74.4 kg (164 lb) 04/26/2012 12:00 AM EST Height 177.8 cm (5' 10 ) 04/26/2012 12:00 AM EST Body Mass Index 23.53 04/26/2012 12:00 AM EST Plan of Treatment Health Maintenance Due Date Last Done Comments Consider Men B Vaccine (1 of 2 - Bexsero 2-dose series) 2009 DTaP,Tdap,and Td Vaccines (7 - Td or Tdap) 12/13/2015 12/12/2005, 07/23/1998, 01/23/1995, Additional history exists Influenza Vaccines (#1) 2023 01/03/20 12, 01/24/2011, 01/21/2010, Additional history exists COVID-19 Vaccine ( season) 2023 Hepatitis B Vaccines Completed 01/18/1994, 1993, 1993 HIB Vaccines Completed 10/20/1994, 04/27, 01/18/1994, Additional history exists IPV Vaccines Completed 07/23/1998, 04/27, 01/18/1994, Additional history exists MMR Vaccines Completed 07/23/1998, 07/24/1994 Meningococcal Vaccine Aged Out 07/26/2007 No christelle martha eligible based on patient's age to complete this topic Varicella Vaccines Completed 07/26/2007, 08/06/1997 HPV Vaccines Aged Out No longer eligi ble based on patient's age to complete this topic Hepatitis A Vaccines Aged Out No long er eligible based on patient's age to complete this topic Men B Vaccine Aged Out No longer elig ible based on patient's age to complete this topic Pneumococcal Vaccine Aged Out No long er eligible based on patient's age to complete this topic
--- OUTSIDE RECORDS SUMMARY | 2024-04-20 02:12 | XMS_ITS | Encounter Summary ---
Author Organization [facility] Address [address] [place] [address] Phone Care Team Providers Care Braddisher Name Role Phone Mira Bagley MD Primary Care Provider Encounter Details Date Type Department Care Team (Late st Contact Info) Description 04/29/[address] [facility] [place] Family Medicine [address] [place] [address] Family Medicine, Physician [address] [place], [place] [phone] Social History Tobacco Use Types Packs/Day Years Used Date Smoking Tobacco: Never Assessed Sex and Gender Information Value Date Recorded Sex Assigned at Not on file Legal Sex Male 4:43 PM EDT Gender Identity Not on file Sexual Orientation Not on file documented as of this encounter Plan of Treatment Not on file documented as of this encounter Visit Diagnoses Not on filedocumented in this encounter Care Teams Braddisher Relationship Specialty Start Date End Date Mira Bagley MD [address] [place] [address] KURT Salazar [address] PCP - General 11/03/16 09/24/22 documented as of this encounter
--- OUTSIDE RECORDS SUMMARY | 2024-04-20 02:12 | XMS_ITS | Encounter Summary ---
Author Organization [facility] Address [address] [place] [address] Phone Care Team Providers Care Budget And Policy Analyst Name Role Phone Mira Bagley MD Primary Care Provider Encounter Details Date Type Department Care Team (Late st Contact Info) Description 11/01/2010 Documentation [facility] [address] [place] [address] Family Medicine, Physician [address] [place], [place] [phone] Social History Tobacco Use Types Packs/Day Years [...] on filedocumented in this encounter Care Teams Budget And Policy Analyst Relationship Specialty Start Date End Date Mira Bagley MD [address] [place] [address] KURT Salazar [address] PCP - General 11/03/16 09/24/22 documented as of this encounter
--- OUTSIDE RECORDS SUMMARY | 2024-04-20 02:12 | XMS_ITS | Encounter Summary ---
Author Organization [facility] Address [address] [place] [address] Phone Care Team Providers Care Linoleum Layer Name Role Phone Mira Bagley MD Primary Care Provider Encounter Details Date Type Department Care Team (Late st Contact Info) Description 11/09/2016 Conversion Encounter [facility] [address] [place] [address] Social History Tobacco Use Types Packs/Day Years [...] on filedocumented in this encounter Care Teams Linoleum Layer Relationship Specialty Start Date End Date Mira Bagley MD [address] [place] [address] PCP - General 11/03/16 09/24/22 documented as of this encounter
--- OUTSIDE RECORDS SUMMARY | 2024-04-20 02:12 | XMS_ITS | Encounter Summary ---
Author Organization [facility] Address [address] [place] [address] Phone Care Team Providers Care Coater Associate Name Role Phone Mira Bagley MD Primary Care Provider [phone] Encounter Details Date Type Department Care Team (Late st Contact Info) Description 01/05/2012 Documentation [facility] [place] Family Medicine [address] [place] [address] Family Medicine, Physician [address] [place], [place] [phone] Social History Tobacco Use Types Packs/Day Years [...] on filedocumented in this encounter Care Teams Coater Associate Relationship Specialty Start Date End Date Mira Bagley MD [address] [place] [address] KURT Salazar [address] PCP - General 11/03/16 09/24/22 documented as of this encounter
--- OUTSIDE RECORDS SUMMARY | 2024-04-20 02:12 | XMS_ITS | Encounter Summary ---
Author Organization [facility] Address [address] [place] [address] Phone Care Team Providers Care Ferryboat Operator Name Role Phone Mria Bagley MD Primary Care Provider Encounter Details Date Type Department Care Team (Late st Contact Info) Description 01/25/2011 Documentation [facility] [address] [place] [address] Family Medicine, Physician [address] [place], [place] [phone] Social History Tobacco Use Types Packs/Day Years [...] on filedocumented in this encounter Care Teams Ferryboat Operator Relationship Specialty Start Date End Date Mira Bagley MD [address] [place] [address] KURT Salazar [address] PCP - General 11/03/16 09/24/22 documented as of this encounter
--- OUTSIDE RECORDS SUMMARY | 2024-04-20 02:12 | XMS_ITS | Encounter Summary ---
Author Organization [facility] Address [address] [place] [address] Phone Care Team Providers Care Upholstery Repairer Name Role Phone Mira Bagley MD Primary Care Provider [phone] Encounter Details Date Type Department Care Team (Late st Contact Info) Description 04/29/2012 Documentation [facility] [place] [address] [place] [address] Family Medicine, Physician [address] [place], [place] [phone] Social History Tobacco Use Types Packs/Day Years [...] on filedocumented in this encounter Care Teams Upholstery Repairer Relationship Specialty Start Date End Date Mira Bagley MD [address] [place] [address] KURT Salazar [address] PCP - General 11/03/16 09/24/22 documented as of this encounter
--- OUTSIDE RECORDS SUMMARY | 2024-04-20 02:12 | XMS_ITS | Encounter Summary ---
Author Organization [facility] Address [address] [place] [address] Phone Care Team Providers Care Supervisor Shellfish Farming Name Role Phone Mira Bagley MD Primary Care Provider Encounter Details Date Type Department Care Team (Late st Contact Info) Description 02/10/2011 Documentation [facility] [place] [address] [place] [address] Family Medicine, Physician [address] [place], [place] [phone] Social History Tobacco Use Types Packs/Day Years [...] on filedocumented in this encounter Care Teams Supervisor Shellfish Farming Relationship Specialty Start Date End Date Mira Bagley MD [address] [place] [address] KURT Salazar [address] PCP - General 11/03/16 09/24/22 documented as of this encounter
--- OUTSIDE RECORDS SUMMARY | 2024-04-20 02:12 | XMS_ITS | Encounter Summary ---
Author Organization [facility] Address [address] [place] [address] Phone Care Team Providers Care Income Auditor Name Role Phone Mira Bagley MD Primary Care Provider Encounter Details Date Type Department Care Team (Late st Contact Info) Description 05/17/2010 Documentation [facility] [address] [place] [address] Family Medicine, Physician [address] [place], [place] [phone] Social History Tobacco Use Types Packs/Day Years [...] on filedocumented in this encounter Care Teams Income Auditor Relationship Specialty Start Date End Date Mira Bagley MD [address] [place] [address] KURT Salazar [address] PCP - General 11/03/16 09/24/22 documented as of this encounter
--- OUTSIDE RECORDS SUMMARY | 2024-04-20 02:12 | XMS_ITS | Encounter Summary ---
Author Organization [facility] Address [address] [place] [address] Phone Care Team Providers Care Development Associate Name Role Phone Mira Bagley MD Primary Care Provider Encounter Details Date Type Department Care Team (Late st Contact Info) Description 02/23/2012 Documentation [facility] [place] Family Medicine [address] [place] [address] Family Medicine, Physician [address] [place], [place] [phone] Social History Tobacco Use Types Packs/Day Years [...] on filedocumented in this encounter Care Teams Development Associate Relationship Specialty Start Date End Date Mira Bagley MD [address] [place] [address] KURT Salazar [address] PCP - General 11/03/16 09/24/22 documented as of this encounter
--- OUTSIDE RECORDS SUMMARY | 2024-04-20 02:12 | XMS_ITS | Encounter Summary ---
Author Organization [facility] Address [address] [place] [address] Phone Care Team Providers Care Mountain Or Glacier Guide Name Role Phone Mira Bagley MD Primary Care Provider Encounter Details Date Type Department Care Team (Late st Contact Info) Description 02/25/2014 [place]ation [facility] [place] [address] [place] [address] Family Medicine, Physician [address] [place], [place] [phone] Social History Tobacco Use Types Packs/Day Years [...] on filedocumented in this encounter Care Teams Mountain Or Glacier Guide Relationship Specialty Start Date End Date Mira Bagley MD [address] [place] [address] KURT Salazar [address] PCP - General 11/03/16 09/24/22 documented as of this encounter
--- OUTSIDE RECORDS SUMMARY | 2024-04-20 02:12 | XMS_ITS | Encounter Summary ---
Author Organization [facility] Address [address] [place] [address] Phone Care Team Providers Care Liquefaction Plant Operator Name Role Phone Mira Bagley MD Primary Care Provider Encounter Details Date Type Department Care Team (Late st Contact Info) Description 08/06/2014 Documentation [facility] [place] Family Medicine [address] [place] [address] Family Medicine, Physician [address] [place], [place] [phone] Social History Tobacco Use Types Packs/Day Years [...] on filedocumented in this encounter Care Teams Liquefaction Plant Operator Relationship Specialty Start Date End Date Mira Bagley MD [address] [place] [address] KURT Salazar [address] PCP - General 11/03/16 09/24/22 documented as of this encounter
--- OUTSIDE RECORDS SUMMARY | 2024-04-20 02:12 | XMS_ITS | Encounter Summary ---
Author Organization [facility] Address [address] [place] [address] Phone Care Team Providers Care Spray Drier Operator Helper Name Role Phone Mira Bagley MD Primary Care Provider Encounter Details Date Type Department Care Team (Late st Contact Info) Description 03/16/2014 Documentation [facility] [place] Family Medicine [address] [place] [address] Family Medicine, Physician [address] [place], [place] [phone] Social History Tobacco Use Types Packs/Day Years [...] on filedocumented in this encounter Care Teams Spray Drier Operator Helper Relationship Specialty Start Date End Date Mira Bagley MD [address] [place] [address] KURT Salazar [address] PCP - General 11/03/16 09/24/22 documented as of this encounter
--- OUTSIDE RECORDS SUMMARY | 2024-04-20 02:12 | XMS_ITS | Encounter Summary ---
Author Organization [facility] Address [address] [place] [address] Phone Care Team Providers Care Lollypop Machine Operator Name Role Phone Mira Bagley MD Primary Care Provider Encounter Details Date Type Department Care Team (Late st Contact Info) Description 04/29/2012 Documentation [facility] [place] [address] [place] [address] Family Medicine, Physician [address] [place], [place] [phone] Social History Tobacco Use Types Packs/Day Years [...] on filedocumented in this encounter Care Teams Lollypop Machine Operator Relationship Specialty Start Date End Date Mira Bagley MD [address] [place] [address] KURT Salazar [address] PCP - General 11/03/16 09/24/22 documented as of this encounter
--- OUTSIDE RECORDS SUMMARY | 2024-04-20 02:12 | XMS_ITS | Encounter Summary ---
Author Organization [facility] Address [address] [place] [address] Phone Care Team Providers Care Dye Worker Name Role Phone Mira Bagley MD Primary Care Provider Encounter Details Date Type Department Care Team (Late st Contact Info) Description 03/08/2015 Documentation [facility] [place] [address] [place] [address] Family Medicine, Physician [address] [place], [place] [phone] Social History Tobacco Use Types Packs/Day Years [...] on filedocumented in this encounter Care Teams Dye Worker Relationship Specialty Start Date End Date Mira Bagley MD [address] [place] [address] KURT Salazar [address] PCP - General 11/03/16 09/24/22 documented as of this encounter
--- OUTSIDE RECORDS SUMMARY | 2024-04-20 02:12 | XMS_ITS | Encounter Summary ---
Author Organization [facility] Address [address] [place] [address] Phone Care Team Providers Care Tongue And Groove Machine Setter Name Role Phone Mira Bagley MD Primary Care Provider Encounter Details Date Type Department Care Team (Late st Contact Info) Description 07/05/2011 Documentation [facility] [place] [address] [place] [address] Family Medicine, Physician [address] [place], [place] [phone] Social History Tobacco Use Types Packs/Day Years [...] on filedocumented in this encounter Care Teams Tongue And Groove Machine Setter Relationship Specialty Start Date End Date Mira Bagley MD [address] [place] [address] KURT Salazar [address] PCP - General 11/03/16 09/24/22 documented as of this encounter
--- OUTSIDE RECORDS SUMMARY | 2024-04-20 02:12 | XMS_ITS | Encounter Summary ---
Author Organization [facility] Address [address] [place] [address] Phone Care Team Providers Care After School Program Teacher Name Role Phone Mira Bagley MD Primary Care Provider Encounter Details Date Type Department Care Team (Late st Contact Info) Description 02/10/2011 Documentation [facility] [place] [facility] [address] [place] [address] Family Medicine, Physician [address] [place], [place] [phone] Social History Tobacco Use Types Packs/Day Years [...] on filedocumented in this encounter Care Teams After School Program Teacher Relationship Specialty Start Date End Date Mira Bagley MD [address] [place] [address] KURT Salazar [id number] PCP - General 11/03/16 09/24/22 documented as of this encounter
--- OUTSIDE RECORDS SUMMARY | 2024-04-20 02:12 | XMS_ITS | Encounter Summary ---
Author Organization [facility] Address [address] [place] [address] Phone Care Team Providers Care Rn Wellness Name Role Phone Mira Bagley MD Primary Care Provider Encounter Details Date Type Department Care Team (Late st Contact Info) Description 01/25/2011 Documentation [facility] [address] [place] [address] Family Medicine, Physician [address] [place], [place] [phone] Social History Tobacco Use Types Packs/Day Years [...] on filedocumented in this encounter Care Teams Rn Wellness Relationship Specialty Start Date End Date Mira Bagley MD [address] [place] [address] KURT Salazar [id number] PCP - General 11/03/16 09/24/22 documented as of this encounter
--- OUTSIDE RECORDS SUMMARY | 2024-04-20 02:12 | XMS_ITS | Encounter Summary ---
Author Organization [facility] Address [address] [place] [address] Phone Care Team Providers Care Cfa Name Role Phone Mira Bagley MD Primary Care Provider [phone] Encounter Details Date Type Department Care Team (Late st Contact Info) Description 02/10/2011 Documentation [facility] [place] [facility] [address] [place] [address] Family Medicine, Physician [address] [place], [place] [phone] Social History Tobacco Use Types Packs/Day Years [...] on filedocumented in this encounter Care Teams Cfa Relationship Specialty Start Date End Date Mira Bagley MD [address] [place] [address] KURT Salazar [id number] PCP - General 11/03/16 09/24/22 documented as of this encounter
== END 2024-04-20 03:34 | disposition left against medical advice (07) ==
PROVIDERS: Emergency Provider Emergency Medicine; PCP Internal Medicine
DX: G43.909 Migraine, unspecified, not intractable, without status migrainosus (principal)
CPT/HCPCS: 99281